=== PATIENT | female | born 1970 | race Caucasian/White ===

== ENCOUNTER → 2017-10-16 09:23 | Outpatient (CLI) | payer OTHER, SELFPAY ==
--- NOTE | 2017-10-16 09:24 | MM_ITS ---
MM Dig screening mamm BI w/CAD ORDERING PHYSICIAN : Nathaniel Trevizo MD PATIENT AGE: 47 years GENDER: Female COMPARISON: June 2016, April 2015, December 2013. Also November 2011 INDICATION: ITS.REASON: Routine Screening Mammogram Depo-Provera shot.. Patient stop hormones 2017. No new complaints. Noncontributory family history TECHNIQUE: Standard CC and MLO images were obtained. R2 CAD reviewed. FINDINGS: Moderate breast density bilaterally. RIGHT BREAST:No significant change follow-up in one year on the right LEFT BREAST: Area of slight relative density at 12:00-1:00 left breast on today's study, matches the 2012 cc view. Overall I favor this is merely a summation shadow Cyst previously noted 2012 ultrasound in this same area as well.. Suggest Follow-up left mammogram 5-6 months to confirm stability IMPRESSION: Left breast slight relative density superior left breast believe is similar to studies dating back to 2012 although variable since that time. Most likely summation shadow However would suggest a follow-up left mammogram in 5-6 months to better confirm stability here, with routine protocol for thereafter Stable right breast. Follow-up one year on right BI-RADS Category: 3 Probably Benign Finding Short Term Follow-up RECOMMENDED FOLLOW-UP: 6M 6 MONTH FOLLOW-UP right breast (A letter has been sent to the patient regarding results of the study.)
[2017-10-16 13:06] LABS: Alanine Aminotransferase 25 U/L (12-78); Albumin Level 3.6 gm/dL (3.4-5.0); Albumin/Globulin Ratio 0.9 (1.1-1.8); Alkaline Phosphatase 85 U/L (46-116); Anion Gap 11.6 mEq/L (5-15); Aspartate Amino Transferase 9 U/L (15-37); Bilirubin,Total 0.4 mg/dL (0.2-1.0); Blood Urea Nitrogen 9 mg/dL (7-18); Calcium 8.9 mg/dL (8.5-10.1); Carbon Dioxide 29 mmol/L (21.0-32.0); Chloride 106 mmol/L (98-107); Chol/HDL Ratio 3.8 (1-3.5); Cholesterol 230 mg/dL (140-200); Creatinine,Serum 0.74 mg/dL (0.55-1.02); Estimated Glomerular Filt Rate 84 ml/min (>60); Free Thyroxine Index 2.9 ug/dL (5.93-13.13); GFR (African American) 102 ML/MIN (>60); Glucose 89 mg/dL (74-106); HDL Cholesterol 61 mg/dL (29-89); LDL Cholesterol 144 mg/dL (0-130); Potassium 4.6 mmoL/L (3.5-5.1); Sodium 142 mmol/L (136-145); T4 (Thyroxine) 9.5 ug/dl (4.7-13.3); Thyroid Stimulating Hormone 0.49 uIU/ml (0.358-3.740); Total Protein,Serum 7.6 gm/dL (6.4-8.2); Triglycerides 124 mg/dL (30-200); Triiodothryronine (T3) Uptake 31 % (31-39); VLDL Cholesterol 25 mg/dL (0-40)
[2017-10-17 18:29] LABS: Vitamin B12 305 pg/mL (232-1245)
== END ==
PROVIDERS: Family Provider Internal Medicine Adolescent Medicine; PCP Internal Medicine Adolescent Medicine; Visit Provider Nurse Practitioner Obstetrics & Gynecology
DX: Z12.31 Encounter for screening mammogram for malignant neoplasm of breast (principal); Z01.419 Encounter for gynecological examination (general) (routine) without abnormal findings
CPT/HCPCS: 36415; 77067; 80053; 80061; 82607; 83735; 84436; 84443; 84479

== ENCOUNTER → 2018-12-10 16:56 | Outpatient (CLI) | payer BC, SELFPAY ==
--- NOTE | 2018-12-10 16:57 | MM_ITS ---
PROCEDURE: MM DIG SCREENING MAMM BI W/CAD CLINICAL INDICATION: Routine Screening Mammogram There is no personal or family history of breast cancer. COMPARISON: [facility] DIG MAMM-SCREEN GUILLERMO from 05/03/2015 [facility] DIG MAMM-SCREEN GUILLERMO W/CAD from 06/27/2016 [facility] MM Dig screening mamm BI w/CAD from 10/16/2017 TECHNIQUE: Standard CC and MLO images were obtained. R2 CAD reviewed. FINDINGS: There is a diffusely dense and heterogenic parenchymal pattern lessening the sensitivity of mammography. The findings are fairly symmetrical bilaterally. There is no suspicious lesion and no suspicious microcalcifications. IMPRESSION: Diffusely dense parenchymal pattern with no suspicious lesions seen BI-RAD Category: 1 Negative FOLLOW-UP: 1YR 1 Year Follow-up (A letter has been sent to the patient regarding results of the study.) Dictated by: Dr. David Arriola MD 12/14/2018 10:[address] David Arriola MD in [place] 12/14/2018 10:12
== END ==
PROVIDERS: PCP Internal Medicine Adolescent Medicine; Visit Provider Nurse Practitioner Obstetrics & Gynecology
DX: Z12.31 Encounter for screening mammogram for malignant neoplasm of breast (principal)
CPT/HCPCS: 77067

== ENCOUNTER → 2020-04-02 07:58 | Outpatient (CLI) | payer BC, SELFPAY ==
--- NOTE | 2020-04-02 08:15 | MM_ITS ---
PROCEDURE: MM DIG SCREENING MAMM BI W/CAD Digital Breast Tomosynthesis Included CLINICAL INDICATION: SCREENING There is no personal or family history of breast cancer. COMPARISON: MG [facility] DIG MAMM-SCREEN GUILLERMO W/CAD from 06/27/2016 MG [facility] MM Dig screening mamm BI w/CAD from 10/16/2017 MG MM DIG SCREENING MAMM BI W/CAD from 12/10/2018 TECHNIQUE: Standard CC and MLO images and 3D Tomosynthesis was obtained. R2 CAD reviewed. FINDINGS: There is a diffusely dense and heterogenic parenchymal pattern stable and basically unchanged from the most recent study. The findings are fairly symmetrical bilaterally. There is a stable tiny nodular density outer quadrant right breast. There is no suspicious lesion in either breast and no suspicious microcalcifications. IMPRESSION: Stable diffusely dense parenchymal pattern with no suspicious lesions seen BI-RAD Category: 2 Benign Finding(s) FOLLOW-UP: 1YR 1 Year Follow-up (A letter has been sent to the patient regarding results of the study.) Dictated by: Dr. David Arriola MD 04/02/2020 17:14 Dr. David Arriola MD in [place] 04/02/2020 17:14
== END ==
PROVIDERS: PCP Internal Medicine Adolescent Medicine; Visit Provider Nurse Practitioner Obstetrics & Gynecology
DX: Z12.31 Encounter for screening mammogram for malignant neoplasm of breast (principal)
CPT/HCPCS: 77063; 77067

== ENCOUNTER → 2020-04-12 08:46 | Outpatient (CLI) | payer BC, SELFPAY ==
[2020-04-12 11:02] LABS: Coronavirus 19 IgG Antibody Positive (Negative); Coronavirus 19 IgM Antibody Negative (Negative)
== END ==
PROVIDERS: Visit Provider Nurse Practitioner Obstetrics & Gynecology
DX: Z11.52 Encounter for screening for COVID-19 (principal)
CPT/HCPCS: 36415; 86328

== ENCOUNTER 2021-07-18 16:50 | Emergency (ER) | payer BC, SELFPAY ==
[2021-07-18 17:02] VITALS: BP 172/111; PULSE 88; RESP 18; TEMP 36.9; O2SAT 99; BMI 28.5
--- NOTE | 2021-07-18 17:11 | HMH.EDUTC ---
[facility] [place] Disposition Clinical Impression: Pharyngitis Qualifiers: Pharyngitis/tonsillitis etiology: unspecified etiology Qualified Code(s): J02.9 - Acute pharyngitis, unspecified Disposition: Home, Self-Care Condition on Discharge: Good Instructions: DI for Pharyngitis/Tonsillopharyngitis -- Adult Additional Instructions: Drink plenty of fluids. Take tylenol or ibuprofen for pain or fever. Take the medications as directed. Follow up with your regular doctor. GO TO THE ER FOR ANY WORSENING SYMPTOMS Prescriptions: predniSONE [Prednisone 20mg Tab] 20 mg PO BID 3 Days #6 tab Transmission Status: Received by [facility] Azithromycin [Z-Jb 250mg Tab*] 250 mg PO UD DOSE PK #6 tab Transmission Status: Received by [facility] Referrals: Alessio Reza [Primary Care Provider] - Time of Disposition: 17:28 Medical Decision Making - Medical Records Medical records reviewed: No: I reviewed the patient's medical records. - Kris Inquiry Pt receiving controlled substance: No Vital Signs: 07/18/21 17:02 07/18/21 17:33 Temperature 98.4 F 98.4 F Temperature Source Oral Pulse Rate 88 Pulse Rate [Left Radial] 88 Respiratory Rate 18 18 Blood Pressure 172/111 H Blood Pressure [Right Arm] 172/111 H Blood Pressure Mean [Right Arm] 131 02 Sat by Pulse Oximetry 99 - Lab Data Lab results reviewed: Yes: I reviewed the patient's lab results. Lab Results 07/18/21 17:09: Group A Strep Rapid Negative Orders (Tests/Meds): ORDERS Category Date Time Status Strep Screen Confirmation Stat Micro 07/18/21 17:09 Received [facility] [place] HPI - General Stated complaint: sore throat Time Seen by Provider: 07/18/21 17:12 - History of Present Illness Provider Complaint: She states that she has had a sore throat for the past 5 days. She denies any fever, chills, or body aches, but she has felt bad at times. - Related Data Previous Rx's Medication Instructions Recorded phentermine 37.5 mg tablet 37.5 mg PO DAILY #30 tab 04/12/20 Azithromycin [Z-Jb 250mg Tab*] 250 mg PO UD DOSE PK #6 tab 07/18/21 predniSONE [Prednisone 20mg 20 mg PO BID 3 Days #6 tab 07/18/21 Tab] Allergies Allergy/AdvReac Type Severity Reaction Status Date / Time Penicillins Allergy Unknown Verified 07/18/21 17:12 [facility] History - Hepatitis A Screen Attestation statement:: This patient has been screened for Hepatitis A risk factors. I have reviewed the patient's past medical history: Yes Medical History: Denies:: Anxiety, Depression, Diabetes Mellitus Type 1, Hyperlipidemia, Hypertension, Migraine, MRSA, Seizures Other Surgeries: Yes: Tubal Ligation Amputation: No Fractures: No Comment: ablation - Social History Smoking Status: Never smoker Alcohol Intake: current Alcohol Intake Frequency:: holidays/special occasions only Substance Use Type: denies use Occupational Status: employed - Psychiatric History Pschychiatric History:: Denies:: Anxiety, Depression Family Hx:: Cancer ROS Obtained: Yes All systems reviewed & no additional complaints - Constitutional Constitutional: Reports as per HPI - Eyes Eyes: Denies eye discharge - ENT Ears, Nose, Mouth, and Throat: Reports as per HPI - Cardiovascular Cardiovascular: Denies chest pain - Respiratory Respiratory: Denies chest congestion, Denies cough, Denies dyspnea, Denies stridor, Denies wheezing - Gastrointestinal Gastrointestingal: Reports: nausea. Denies: abdominal pain, diarrhea, vomiting - Musculoskeletal Musculoskeletal: Denies joint pain - Integumentary/Breasts Skin/Breast: Denies rash Physical Exam - General General appearance: alert, in no apparent distress - Head Head exam: atraumatic, normocephalic, normal inspection - Eye Eye exam: Present: normal appearance, PERRL, EOMI - ENT ENT exam: Present: mucous membranes moist, normal external ear exam - Expanded ENT Exam
[2021-07-18 17:24] LABS: Strep Scrn Group A (Rapid) Negative (Negative)
[2021-07-18 17:33] VITALS: BP 172/111; PULSE 88; RESP 18; TEMP 36.9
== END 2021-07-18 17:34 | disposition home or self-care (01) ==
PROVIDERS: Emergency Provider Nurse Practitioner Family; PCP Family Medicine
DX: J02.9 Acute pharyngitis, unspecified (principal); Z79.1 Long term (current) use of non-steroidal anti-inflammatories (NSAID); Z79.52 Long term (current) use of systemic steroids; Z88.0 Allergy status to penicillin; Z20.9 Contact with and (suspected) exposure to unspecified communicable disease
CPT/HCPCS: 87430; 99213; G0463

== ENCOUNTER 2021-07-28 09:38 | Emergency (ER) | payer BC, SELFPAY ==
--- NOTE | 2021-07-28 09:42 | XR_ITS ---
PROCEDURE INFORMATION: Exam: XR Right Ribs with PA Chest Exam date and time: 07/28/2021 9:57 AM Age: 51 years old Clinical indication: Other: Right rib pain; Additional info: Pop and pain in right mid rib area TECHNIQUE: Imaging protocol: Radiologic exam of the Right ribs with PA chest. Views: 3 views COMPARISON: No relevant prior studies available. FINDINGS: Lungs: No focal airspace disease. Pleural spaces: Unremarkable. No pleural effusion. No pneumothorax. Heart/Mediastinum: Cardiomediastinal silhouette is within normal limits. Bones/joints: No displaced rib fractures identified. IMPRESSION: 1. No acute cardiopulmonary abnormality. 2. No displaced rib fractures identified.
[2021-07-28 09:45] VITALS: BP 149/97; PULSE 83; RESP 18; TEMP 36.5; O2SAT 96; BMI 28.5
--- NOTE | 2021-07-28 09:47 | HMH.EDUTC ---
[facility] [place] Disposition Clinical Impression: Rib pain on right side Disposition: Home, Self-Care Condition on Discharge: Good Instructions: DI for Rib Contusion Additional Instructions: Use the incentive spirometer 10 times every 2 hours while you are awake for the next 2 weeks. Make sure you are deep breathing and coughing regularly. Go home and rest. It would be best if you rested tomorrow too. No heavy lifting. No twisting. Take the oral medications as directed. Follow up with your regular doctor. GO TO THE ER FOR ANY WORSENING SYMPTOMS OR CONCERN, ESPECIALLY BOWEL OR BLADDER ISSUES, SADDLE AREA NUMBNESS, FEVER, ETC Prescriptions: Ibuprofen [Ibuprofen 800mg Tablet] 800 mg PO Q8HP PRN #30 tab PRN Reason: Moderate Pain Transmission Status: Received by [id number] Referrals: Alessio Reza [Primary Care Provider] - Forms: Work/School Release Time of Disposition: 10:41 Medical Decision Making - Medical Records Medical records reviewed: No: I reviewed the patient's medical records. - Kris Inquiry Pt receiving controlled substance: No Vital Signs: 07/28/21 09:45 07/28/21 10:45 Temperature 97.7 F 97.7 F Temperature Source Oral Pulse Rate 83 Pulse Rate [Left Radial] 83 Respiratory Rate 18 18 Blood Pressure 149/97 H Blood Pressure [Right Arm] 149/97 H Blood Pressure Mean [Right Arm] 114 02 Sat by Pulse Oximetry 96 - Lab Data Lab results reviewed: Yes: I reviewed the patient's lab results. Orders (Tests/Meds): ED MEDICATIONS Discontinued Medications Generic Name Dose Route Start Last Admin Trade Name Freq PRN Reason Stop Dose Admin Ketorolac Tromethamine 60 mg 07/28/21 10:32 07/28/21 10:38 Ketorolac 60mg/2ml Vial IM 07/28/21 10:33 60 mg ONCE ONE Administration [facility] [place] HPI - General Stated complaint: rt side pain Time Seen by Provider: 07/28/21 09:47 - History of Present Illness Provider Complaint: She states that yesterday she was stretching to bend over to waste picker a stick out of her yard when she felt something pop in her left lower chest. Since then she has had right sided chest tenderness and pain with movement. She denies any other chest pain or injury. She denies any shortness of breath or cough. - Related Data Previous Rx's Medication Instructions Recorded phentermine 37.5 mg tablet 37.5 mg PO DAILY #30 tab 04/12/20 Azithromycin [Z-Jb 250mg Tab*] 250 mg PO UD DOSE PK #6 tab 07/18/21 predniSONE [Prednisone 20mg 20 mg PO BID 3 Days #6 tab 07/18/21 Tab] Ibuprofen [Ibuprofen 800mg 800 mg PO Q8HP PRN #30 tab 07/28/21 Tablet] Allergies Allergy/AdvReac Type Severity Reaction Status Date / Time Penicillins Allergy Unknown Verified 07/28/21 09:52 [facility] History - Hepatitis A Screen Attestation statement:: This patient has been screened for Hepatitis A risk factors. I have reviewed the patient's past medical history: Yes Medical History: Denies:: Anxiety, Depression, Diabetes Mellitus Type 1, Hyperlipidemia, Hypertension, Migraine, MRSA, Seizures Other Surgeries: Yes: Tubal Ligation Amputation: No Fractures: No Comment: ablation - Social History Smoking Status: Never smoker Alcohol Intake: current Alcohol Intake Frequency:: holidays/special occasions only Substance Use Type: denies use Occupational Status: employed - Psychiatric History Pschychiatric History:: Denies:: Anxiety, Depression Family Hx:: Cancer ROS Obtained: Yes All systems reviewed & no additional complaints - Constitutional Constitutional: Denies chills, Denies fever(s) - Eyes Eyes: Denies eye discharge - ENT Ears, Nose, Mouth, and Throat: Denies sore throat - Cardiovascular Cardiovascular: Reports as per HPI - Respiratory Respiratory: Denies chest congestion, Denies cough, Denies dyspnea, Denies stridor, Denies wheezing - Gastrointestinal Gastrointestingal: Denies: abdominal pain, diarrhea, nausea, vomiting
[2021-07-28 10:45] VITALS: BP 149/97; PULSE 83; RESP 18; TEMP 36.5
== END 2021-07-28 10:52 | disposition home or self-care (01) ==
PROVIDERS: Emergency Provider Nurse Practitioner Family; PCP Family Medicine
DX: R07.81 Pleurodynia (principal)
CPT/HCPCS: 71101; 96372; 99212; G0463

== ENCOUNTER → 2021-08-03 11:16 | Outpatient (CLI) | payer BC, SELFPAY ==
--- NOTE | 2021-08-03 11:29 | XR_ITS ---
PROCEDURE INFORMATION: Exam: XR Right Ribs with PA Chest Exam date and time: 08/03/2021 11:45 AM Age: 51 years old Clinical indication: Chest wall pain; Right TECHNIQUE: Imaging protocol: Radiologic exam of the Right ribs with PA chest. Views: 3 views COMPARISON: CR XR RIBS RT MIN 3V W [id number] 07/28/2021 9:57 AM FINDINGS: Lungs: Unremarkable. No consolidation. Pleural spaces: Unremarkable. No pleural effusion. No pneumothorax. Heart/Mediastinum: Unremarkable. No cardiomegaly. Bones/joints: Unremarkable. IMPRESSION: 1. No evidence for rib fracture or pneumothorax is identified on four views of the chest and ribs. 2. No evidence of acute cardiopulmonary process.
== END ==
PROVIDERS: PCP Family Medicine; Visit Provider Nurse Practitioner Family
DX: R07.89 Other chest pain (principal)
CPT/HCPCS: 71101

== ENCOUNTER → 2022-05-13 16:07 | Outpatient (CLI) | payer BC, SELFPAY ==
--- NOTE | 2022-05-13 16:07 | MM_ITS ---
PROCEDURE INFORMATION: Exam: MG Bilateral Screening 3D Mammography Exam date and time: 05/13/2022 4:05 PM Age: 52 years old Clinical indication: Screening examination TECHNIQUE: Imaging protocol: Bilateral Screening tomosynthesis and 2D mammography including computer-aided detection (CAD) when performed. COMPARISON: 1. MG MM DIG SCREENING MAMM BI W/CAD 04/02/2020 8:13 AM 2. MG MM DIG SCREENING MAMM BI W/CAD 12/10/2018 5:02 PM FINDINGS: MAMMOGRAPHY: Breast composition: The breasts are heterogeneously dense, which may obscure small masses. Mass: None. Architectural distortion: None. Calcifications: No suspicious calcifications. Asymmetric density: None. Skin thickening: None. Axillary adenopathy: None. IMPRESSION: No mammographic evidence of malignancy. Annual screening is recommended unless otherwise clinically indicated. ASSESSMENT: BI-RADS Category 1: Negative
== END ==
PROVIDERS: PCP Family Medicine; Visit Provider Nurse Practitioner Obstetrics & Gynecology
DX: Z12.31 Encounter for screening mammogram for malignant neoplasm of breast (principal)
CPT/HCPCS: 77063; 77067

== ENCOUNTER 2023-07-28 16:12 | Outpatient (CLI) | payer BC, SELFPAY ==
--- NOTE | 2023-07-28 16:14 | MM_ITS ---
PROCEDURE INFORMATION: Exam: MG Bilateral Screening 3D Mammography Exam date and time: 07/28/2023 4:04 PM Age: 53 years old Clinical indication: Screening examination TECHNIQUE: Imaging protocol: Bilateral Screening tomosynthesis and 2D mammography including computer-aided detection (CAD) when performed. COMPARISON: 1. MG MM DIG SCREENING MAMM BI W/CAD 05/13/2022 4:05 PM 2. MG MM DIG SCREENING MAMM BI W/CAD 04/02/2020 8:13 AM FINDINGS: MAMMOGRAPHY: Breast composition: The breasts are heterogeneously dense, which may obscure small masses. Mass: None. Architectural distortion: None. Calcifications: No suspicious calcifications. Asymmetric density: None. Skin thickening: None. Axillary adenopathy: None. IMPRESSION: No mammographic evidence of malignancy. Annual screening is recommended unless otherwise clinically indicated. ASSESSMENT: BI-RADS Category 1: Negative
== END 2023-07-28 23:59 | disposition home or self-care (01) ==
LOC: RAD 16:12
PROVIDERS: PCP Family Medicine; Visit Provider Nurse Practitioner Obstetrics & Gynecology
DX: Z12.31 Encounter for screening mammogram for malignant neoplasm of breast (principal)
CPT/HCPCS: 77063; 77067

== ENCOUNTER 2025-01-02 15:30 | Outpatient (CLI) | payer BC, SELFPAY ==
--- OUTSIDE RECORDS SUMMARY | 2024-12-13 15:00 | XMS_ITS | Encounter Summary ---
[facility] [address] [place] [address] Care Team Providers Care Marina Porter Name Role Phone Alessio Reza MD Primary Care Provider [phone] Reason for Referral * Diagnostic Imaging (Routine) - Authorized Specialty Diagnoses / Procedures Referred By Contmercy t Referred To Contact Diagnoses Screening mammogram for breast cancer Procedures Mammo Screening Digital Tomosynthesis Bilateral With CAD Alessio Reza MD [address] [facility] [address] Phone: tel: fax: [facility] OUTPT [facility] [address] [place] [address] Phone: tel: fax: Referral ID Status Reason Start Date Expiration Date V isits Requested Visits Authorized [id number] Authorized 12/13/2024 03/14/2026 1 1 Reason for Visit * Reason Comments Annual Exam Physical Encounter Details Date Type Department Care Team (Late st Contact Info) Description 12/13/2024 3:00 PM EST Office Visit [facility] [address] [place] [address] Alessio Reza MD [address] [place] [address] Annual physical exam (Primary Dx); Elevated cholesterol; Screening mammogram for breast cancer Social History Tobacco Use Types Packs/Day Years Used Date Smoking Tobacco: Never Smokeless Tobacco: Never Alcohol Use Standard Drinks/Week Comments Never 0 (1 standard drink = 0.6 oz pur e alcohol) AUDIT-C Answer Date Recorded Q1: How often do you have a drink containing alc ohol? Never 09/28/2020 Average Number of Drinks Not on file 021 Frequency of Binge Drinking Not on file 09/10 PHQ-2 Answer Date Recorded Retired PHQ-9: Brief Depression Severity Measure Score 0 05/05/2022 PHQ-2 Answer Date Recorded Patient Health Questionnaire-2 Score 0 12/13/2024 Comments Unknown Sex and Gender Information Value Date Recorded Sex Assigned at Female 11/29/2024 8:11 AM EDT Legal Sex Female 1:41 PM EDT Gender Identity Not on file Sexual Orientation Straight 11/29/2024 8: 11 AM EDT Occupation Industry Job Start Date Job End Date Not on file Not on file Not on file Not on file documented as of this encounter Last Filed Vital Signs Vital Sign Reading Time Taken Comments Blood Pressure 132/76 12/13/2024 3:07 PM EST Pulse 85 12/13/2024 3:07 PM EST Temperature 36.9 C (98.4 F) 12/13/2024 3:07 PM EST Respiratory Rate 18 12/13/2024 3:07 PM EST Oxygen Saturation 98% 12/13/2024 3:07 PM EST Inhaled Oxygen Concentration - - Weight 59.4 kg (131 lb) 12/13/2024 3:07 PM EST Height 152.4 cm (5') 12/13/2024 3:07 PM EST Body Mass Index 25.58 12/13/2024 3:07 PM EST documented in this encounter Functional Status documented as of this encounter Progress Notes * Alessio Reza MD - 12/13/2024 3:00 PM EST Subjective Chief Complaint Patient presents with Annual Exam Physical Rejeana Maria Eugenia Mcduffie is a 54 y.o. female who presents for an annual exam. The patient has no complaints today. The patient is sexually active. [employer]OX H[employer]OCK ATT[employer]ER screening history: last pap: was normal. The patient wears seatbelts: yes. The patient participates in regular exercise: yes. . The patient reports that there is not domestic violence in her life. History of abnormal Pap smear: no Family history of uterine or ovarian cancer: no Family history of colon cancer: no History of abnormal mammogram: no Family history of breast cancer: no Colonoscopy history: cologuard Menstrual History: OB History 0 Para 0 Term 0 0 AB 0 Living 0 SAB 0 IAB 0 Ectopic 0 Molar 0 Multiple 0 Live Births 0 No LMP recorded. The following portions of the patient's history were reviewed and updated as appropriate:vital signs, allergies, current medications, past family history, past medical history, past social history, past surgical history, and problem list Review of Systems A comprehensive review of systems was negative. Objective BP 132/76 Pulse 85 Temp 98.4 ??F (36.9 ??C) Resp 18 Ht 152.4 cm (60 ) Wt 59.4 kg (131 lb) SpO2 98% BMI 25.58 kg/m?? Physical Exam Vitals and nursing note reviewed. Constitutional: General: She is not in acute distress. Appearance: Normal appearance. She is well-developed. HENT: Head: Normocephalic and atraumatic. Right Ear: Tympanic membrane, ear canal and external ear normal. Left Ear: Tympanic membrane, ear canal and external ear normal. Nose: Nose normal. Eyes: Extraocular Movements: Extraocular movements intact. Conjunctiva/sclera: Conjunctivae normal. Neck: Thyroid: No thyromegaly. Cardiovascular: Rate and Rhythm: Normal rate and regular rhythm. Heart sounds: Normal heart sounds. No murmur heard. Pulmonary: Effort: Pulmonary effort is normal. No respiratory distress. Breath sounds: Normal breath sounds. Abdominal: General: Bowel sounds are normal. There is no distension. Palpations: Abdomen is soft. Tenderness: There is no abdominal tenderness. Musculoskeletal: Cervical back: Normal range of motion and neck supple. Lymphadenopathy: Cervical: No cervical adenopathy. Skin: General: Skin is warm and dry. Neurological: Mental Status: She is alert and oriented to person, place, and time. Psychiatric: Mood and Affect: Mood normal. Behavior: Behavior normal. Thought Content: Thought content normal. Judgment: Judgment normal. Assessment & Plan ASSESSMENT Healthy female exam. 1. Annual physical exam 2. Elevated cholesterol 3. Screening mammogram for breast cancer PLAN 1. Orders Placed This Encounter Procedures Mammo Screening Digital Tomosynthesis Bilateral With CAD Lipid Panel Comprehensive Metabolic Panel CBC & Differential 2. Medications prescribed this encounter: No orders of the defined types were placed in this encounter. 3. Counseled pt about well adult car, she remains active, will work on mammogram, will recheck lipids and f/u pending labs Alessio Reza MD 12/13/2024 documented in this encounter Plan of Treatment Scheduled Orders Name Type Priority Associated Diagnoses Orde r Schedule Mammo Screening Digital Tomosynthesis Bilateral With CAD Imaging Routine Screening mammogram for breast cancer Expected: 06/11/2025 (Approximate), Expires: 12/13/2025 documented as of this encounter Procedures Procedure Name Priority Date/Time Associated Diagnosis Comments CBC AND DIFFERENTIAL Routine 12/14/2024 8:27 AM EST Elevated cholesterol LIPID PANEL Routine 12/14/2024 8:27 AM EST Elevated cholesterol COMPREHENSIVE METABOLIC PANEL Routine 12/14/2024 8:27 AM EST Elevated cholesterol documented in this encounter Results * Comprehensive Metabolic Panel (12/14/2024 8:27 AM EST) Glucose 81 65 - 99 mg/dL [facility] BUN 15.0 6.0 - 20.0 mg/dL [facility] Creatinine 0.75 0.57 - 1.00 mg/dL [facility] EGFR Result 94.7 >60.0 mL/min/1.7 3 [facility] Comment: GFR Categories in Chronic Kidney Disease (CKD) GFR Category GFR (mL/min/1.73) Interpretation G1 90 or greater Normal or high (1) G2 60-89 Mild decrease (1) G3a 45-59 Mild to moderate decrease G3b 30-44 Moderate to severe decrease G4 15-29 Severe decrease G5 14 or less Kidney failure (1)In the absence of evidence of kidney disease, neither GFR category G1 or G2 fulfill the criteria for CKD. eGFR calculation 2020 CKD-EPI creatinine equation, which does not include race as a factor BUN/Creatinine Ratio 20.0 7.0 - 25.0 [facility] Sodium 141 136 - 145 mmol/L [facility] Potassium 4.6 3.5 - 5.2 mmol/L [facility] Chloride 104 98 - 107 mmol/L [facility] Total CO2 25.3 22.0 - 29.0 mmol/L [facility] Calcium 9.5 8.6 - 10.5 mg/dL [facility] Total Protein 7.4 6.0 - 8.5 g/dL [facility] Albumin 4.4 3.5 - 5.2 g/dL [facility] Globulin 3.0 gm/dL [facility] A/G Ratio 1.5 g/dL [facility] Total Bilirubin 0.4 0.0 - 1.2 mg/dL [facility] Alkaline Phosphatase 96 39 - 117 U/L [facility] AST (SGOT) 17 1 - 32 U/L [facility] ALT (SGPT) 15 1 - 33 U/L [facility] Blood 12/14/2024 8:27 AM EST 12/14/2024 Narrative [facility] ([facility]) - 12/15/2024 3:07 AM EST Performed at: [address] [place] [id number] Medical Social Worker: Sukhwinder Figueroa MD, Phone: [phone] Patient Fasting: Y us Alessio Reza MD LAB BLOOD ORDERABLES Final Resu lt [facility] (AMBULATORY) [address] [place] [address], [facility] [address] [place] [address], * (ABNORMAL) Lipid Panel (12/14/2024 8:27 AM EST) [facility] Total Cholesterol 245(H) 0 - 200 mg/dL [facility] Comment: Cholesterol Reference Ranges (U.S. Department of Health and Human Services ATP III Classifications) Desirable <200 mg/dL Borderline High 200-239 mg/dL High Risk >240 mg/dL Triglyceride Reference Ranges (U.S. Department of Health and Human Services ATP III Classifications) Normal <150 mg/dL Borderline High 150-199 mg/dL High 200-499 mg/dL Very High >500 mg/dL HDL Reference Ranges (U.S. Department of Health and Human Services ATP III Classifications) Low <40 mg/dl (major risk factor for CHD) High >60 mg/dl ('negative' risk factor for CHD) LDL Reference Ranges (U.S. Department of Health and Human Services ATP III Classifications) Optimal <100 mg/dL Near Optimal 100-129 mg/dL Borderline High 130-159 mg/dL High 160-189 mg/dL Very High >189 mg/dL LDL is calculated using the NIH LDL-C calculation. Triglycerides 88 0 - 150 mg/dL [facility] HDL Cholesterol 62(H) 40 - 60 mg/dL [facility] VLDL Cholesterol Nash 15 5 - 40 mg/dL [facility] LDL Chol Calc (NIH) 168(H) 0 - 100 mg/dL [facility] Blood 12/14/2024 8:27 AM EST 12/14/2024 Narrative [facility] ([facility]) - 12/15/2024 3:07 AM EST Performed at: [address] [place] [id number] Medical Social Worker: Sukhwinder Figueroa MD, Phone: [phone] Patient Fasting: Y Alessio Reza MD LAB BLOOD ORDERABLES Final Resu lt [facility] (AMBULATORY) [address] [place] [address], [facility] [address] [place] [address], * CBC & Differential (12/14/2024 8:27 AM EST) [facility] WBC 4.11 3.40 - 10.80 10*3/mm3 [facility] RBC 4.45 3.77 - 5.28 10*6/mm3 [facility] Hemoglobin 12.9 12.0 - 15.9 g/dL [facility] Hematocrit 39.8 34.0 - 46.6 % [facility] MCV 89.4 79.0 - 97.0 fL [facility] MCH 29.0 26.6 - 33.0 pg [facility] MCHC 32.4 31.5 - 35.7 g/dL [facility] RDW 13.1 12.3 - 15.4 % [facility] Platelets 273 140 - 450 10*3/mm3 [facility] Neutrophil Rel % 50.3 42.7 - 76.0 % [facility] Lymphocyte Rel % 40.1 19.6 - 45.3 % [facility] Monocyte Rel % 5.8 5.0 - 12.0 % [facility] Eosinophil Rel % 2.4 0.3 - 6.2 % [facility] Basophil Rel % 1.2 0.0 - 1.5 % [facility] Neutrophils Absolute 2.06 1.70 - 7.00 10*3/mm3 [facility] Lymphocytes Absolute 1.65 0.70 - 3.10 10*3/mm3 [facility] Monocytes Absolute 0.24 0.10 - 0.90 10*3/mm3 [facility] Eosinophils Absolute 0.10 0.00 - 0.40 10*3/mm3 [facility] Basophils Absolute 0.05 0.00 - 0.20 10*3/mm3 [facility] Immature Granulocyte Rel % 0.2 0.0 - 0.5 % [facility] Immature Grans Absolute 0.01 0.00 - 0.05 10*3/mm3 [facility] nRBC 0.0 0.0 - 0.2 /100 WBC [facility] Blood 12/14/2024 8:27 AM EST 12/14/2024 Narrative [facility] ([facility]) - 12/15/2024 3:07 AM EST Performed at: [address] [id number] Medical Social Worker: Sukhwinder Figueroa MD, Phone: [phone] Patient Fasting: Y us Alessio Reza MD LAB BLOOD ORDERABLES Final Resu lt [facility] ([facility]) [address] [place] [address], [place] [phone] [facility] [address] [place] [address], [place] [phone] documented in this encounter Visit Diagnoses Diagnosis Annual physical exam- Primary Routine general medical examination at a health care facility Elevated cholesterol Pure hypercholesterolemia Screening mammogram for breast cancer documented in this encounter Care Teams Marina Porter Relationship Specialty Start Date End Date Alessio Reza MD [address] [place] [address] PCP - General Family Medicine 09/28/20 documented as of this encounter
--- OUTSIDE RECORDS SUMMARY | 2024-12-14 08:30 | XMS_ITS | Encounter Summary ---
Author Organization [facility] Address [address] [place] [address] Care Team Providers Care Pricing/Signage Team Member Name Role Phone Alessio Reza MD Primary Care Provider [phone] Encounter Details Date Type Department Care Team (Late st Contact Info) Description 12/14/2024 8:30 AM EST Lab [facility] [address] [place] [address] Social History Tobacco Use Types Packs/Day Years [...] on file documented as of this encounter Plan of Treatment Not on file documented as of this encounter Visit Diagnoses Not on filedocumented in this encounter Care Teams Pricing/Signage Team Member Relationship Specialty Start Date End Date Alessio Reza MD [address] [place] [address] PCP - General Family Medicine 09/28/20 documented as of this encounter
--- NOTE | 2025-01-02 15:32 | MM_ITS ---
PROCEDURE INFORMATION: Exam: MG Bilateral Screening 3D Mammography Exam date and time: 01/02/2025 3:30 PM Age: 54 years old Clinical indication: Screening examination TECHNIQUE: Imaging protocol: Bilateral Screening tomosynthesis and 2D mammography including computer-aided detection (CAD) when performed. COMPARISON: MG MM DIG SCREENING MAMM BI W/CAD 07/28/2023 4:04 PM FINDINGS: MAMMOGRAPHY: Breast composition: The breasts are heterogeneously dense, which may obscure small masses. Mass: No suspicious masses. Architectural distortion: None. Calcifications: No suspicious calcifications. Asymmetric density: None. Skin thickening: None. Axillary adenopathy: None. IMPRESSION: No mammographic evidence of malignancy. Annual screening is recommended unless otherwise clinically indicated. ASSESSMENT: BI-RADS Category 1: Negative.
--- OUTSIDE RECORDS SUMMARY | 2025-01-02 15:32 | XMS_ITS | Encounter Summary ---
[facility] [address] [place] [id number] Care Team Providers Care Assistant Professor Of Life Sciences Name Role Phone Alessio Reza MD Primary Care Provider [phone] Reason for Visit * Reason Onset Date Comments ORDERS 11/30/2024 Encounter Details Date Type Department Care Team (Late st Contact Info) Description 11/30/2024 Telephone [facility] [address] [place] [address] Alessio Reza MD [address] [place] [address] ORDERS Social History Tobacco Use Types Packs/Day Years [...] on file documented as of this encounter Functional Status documented as of this encounter Miscellaneous Notes * Telephone Encounter - Beatris Pedersen - 11/30/2024 8:17 AM EDT Caller: Asael Mcduffie Relationship: Self Best call back number: [phone] What is the best time to reach you: ANY Who are you requesting to speak with (clinical staff, provider, specific staff member): NURSE Do you know the name of the person who called: PATIENT What was the call regarding: PATIENT WOULD LIKE TO DO LABS. NEEDS ORDERS. Is it okay if the provider responds through MyChart: PHONE CALL PLEASE documented in this encounter Plan of Treatment Not on file documented as of this encounter Visit Diagnoses Not on filedocumented in this encounter Care Teams Assistant Professor Of Life Sciences Relationship Specialty Start Date End Date Alessio Reza MD [address] [place] [address] PCP - General Family Medicine 09/28/20 documented as of this encounter
--- OUTSIDE RECORDS SUMMARY | 2025-01-02 15:32 | XMS_ITS | Clinical Summary ---
Author Organization [facility] Address [facility] LEONARDO Sung [address] Phone Care Team Providers Care Head Soft Sugar Operator Name Role Phone Unavailable Primary Care Provider Unavailabl e Allergies Active Allergy Reactions Criticality Noted Date Comments Penicillins Hives 05/23/2022 Social History Tobacco Use Types Packs/Day Years Used Date Smoking Tobacco: Never Assessed Comments Unknown Sex and Gender Information Value Date Recorded Sex Assigned at Not on file Legal Sex Female 6:18 PM EDT Gender Identity Not on file Sexual Orientation Not on file Last Filed Vital Signs Vital Sign Reading Time Taken Comments Blood Pressure 142/76 05/23/2022 7:00 PM EDT Pulse 80 05/23/2022 7:00 PM EDT Temperature 36.4 C (97.5 F) 05/23/2022 7:00 PM EDT Respiratory Rate 16 05/23/2022 7:00 PM EDT Oxygen Saturation 100% 05/23/2022 7:00 PM EDT Inhaled Oxygen Concentration - - Weight - - Height - - Body Mass Index - - Plan of Treatment Health Maintenance Due Date Last Done Comments Annual Wellness Exam 1973 Cervical Cancer Screening 1991 Pap Smear 1991 HPV/Pap Cotest 01/27/2000 Breast Cancer Screening 2010 Cologuard 2015 Colon Cancer Screening 2015 Colonoscopy 2015 FIT 2015 Sigmoidoscopy 2015 Virtual Colonography 2015 Pneumococcal Vaccine 50+ (1 of 1 - PCV) 01/27/2020 Zoster (1 of 2) 01/27/2020 COVID-19 Vaccine (1 - 2024- season) 2024 Influenza Vaccine (#1) 2024 11/22/2019, 2018 DTaP/TDaP/Td (2 - Td or Tdap) 10/22/2028 10/22/2018 Hepatitis B Vaccine Completed 11/21/2019, 11/21/2018, 10/22/2018, Additional history exists Meningococcal B Vaccine Aged Out No l onger eligible based on patient's age to complete this topic Insurance [place] [id number] [facility] [place] [id number] ANTHEM PPO
--- OUTSIDE RECORDS SUMMARY | 2025-01-02 15:32 | XMS_ITS | Encounter Summary ---
[facility] [address] [place] [address] Care Team Providers Care Technical Program Manager Name Role Phone Alessio Reza MD Primary Care Provider [phone] Encounter Details Date Type Department Care Team (Late st Contact Info) Description 12/18/2024 Results Follow-Up [facility] [address] [place] [address] Alessio Reza MD [address] [place] [address] Social History Tobacco Use Types Packs/Day Years [...] on filedocumented in this encounter Care Teams Technical Program Manager Relationship Specialty Start Date End Date Alessio Reza MD [address] [place] [address] PCP - General Family Medicine 09/28/20 documented as of this encounter
--- OUTSIDE RECORDS SUMMARY | 2025-01-02 15:32 | XMS_ITS | Encounter Summary ---
[facility] [address] [place] [address] Care Team Providers Care Deckhand Fishing Vessel Name Role Phone Alessio Reza MD Primary Care Provider [phone] Encounter Details Date Type Department Care Team (Late st Contact Info) Description 12/15/2024 Results Follow-Up [facility] [address] [place] [address] Alessio Reza MD [address] [place] [address] Social History Tobacco Use Types [...] on filedocumented in this encounter Care Teams Deckhand Fishing Vessel Relationship Specialty Start Date End Date Alessio Reza MD [address] [place] [address] PCP - General Family Medicine 09/28/20 documented as of this encounter
--- OUTSIDE RECORDS SUMMARY | 2025-01-02 15:32 | XMS_ITS | Encounter Summary ---
[facility] [address] [place] [address] Care Team Providers Care Apple Peeler Operator Name Role Phone Alessio Reza MD Primary Care Provider [phone] Encounter Details Date Type Department Care Team (Latest Contact Info) Description 12/13/2024 Travel Social History Tobacco Use Types Packs/Day Years [...] Functional Status documented as of this encounter Plan of Treatment Not on file documented as of this encounter Visit Diagnoses Not on filedocumented in this encounter Care Teams Apple Peeler Operator Relationship Specialty Start Date End Date Alessio Reza MD [address] [place] [address] PCP - General Family Medicine 09/28/20 documented as of this encounter
--- OUTSIDE RECORDS SUMMARY | 2025-01-02 15:32 | XMS_ITS | Clinical Summary ---
[facility] Address [address] [place] [address] Care Team Providers Care Gaggerman Name Role Phone Alessio Reza MD Primary Care Provider [phone] Allergies Active Allergy Reactions Criticality Noted Date Comments Penicillins Hives 09/28/2020 Medications * This document contains information received from the source organization and may not represent a complete record from that organization. HYDROcodone-ac etaminophen (NORCO) 5-325 MG per tabletIndicati ons:Rib contusion, left, initial encounter Take 1 tablet by mouth Every 8 (Eight) Hours As Needed for Moderate Pain. 12 tablet 05/10/19 25 025 Discontinued naproxen (Naprosyn) 500 MG tabletIndicati ons:Rib contusion, left, initial encounter Take 1 tablet by mouth 2 (Two) Times a Day With Meals. 60 tablet 05/10/19 25 025 Discontinued(*T herapy completed) Active Problems No known active problems Resolved Problems Problem Noted Date Diagnosed Date Resolved Date Essential hypertension 03/29/202312/13 Assessment & Plan (03/29/2023 5:26 PM EST): HTN Education Goal BP 120/80 Follow a low sodium diet Increase water intake Take medications as prescribed Monitor for s/s of elevated BP Go to the ER with BP >180/100 with symptoms of chest pains, shortness of breath, visual disturbances, headaches Encounters * This document contains information received from the source organization and may not represent a complete record from that organization. Date Type Department Care Team Description 12/18/2024 Results Follow-Up [facility] [address] [place], [place] [address] Alessio Reaz MD 12/15/2024 Results Follow-Up [facility] [address] [place], [place] [address] Alessio Reza MD 12/14/2024 8:30 AM EST Lab [facility] [address] [place] [address] 12/13/2024 3:00 PM EST Office Visit [facility] [address] [place] [address] Alessio Reza MD Annual physical exam (Primary Dx); Elevated cholesterol; Screening mammogram for breast cancer 12/13/2024 Travel 11/30/2024 Telephone [facility] [address] [place] [address] Alessio Reza MD ORDERS from Last 3 Months Immunizations Immunization Administration Dates Next Due Fluzone (or Fluarix & Flulav al for VFC) >6mos 11/22/2019,11/21/2018 Hep A / Hep B 11/21/2019,11/21/2018,10/22/2018 Hepatitis B 01/18/2007 Influenza, Unspecified 11/22/2019,11/21/2018 Tdap 10/22/2018 Family History Medical History Relation Name Comments Diabetes Father Ray Early Father Ray Relation Name Status Comments Father Ray Mother Alive Social History Tobacco Use Types Packs/Day Years [...] file Not on file Not on file Last Filed Vital Signs [...] Mass Index 25.58 12/13/2024 3:07 PM EST Plan of Treatment Health Maintenance Due Date Last Done Comments COLON CANCER SCREENING 5 YEAR SIGMOIDOSCOPY [address] COLONOGRAPHY 2015 FECAL OCCULT BLOOD TEST 2015 FIT Testing (1 year) 2015 ZOSTER VACCINE (1 of 2) 01/27/2020 Annual Gynecologic Pelvic and Breast Exam 05/21/2023 05/19/2022 PAP SMEAR 05/19/2025 05/19/2022 INFLUENZA VACCINE 06/11/2025 11/22/2019, , 11/21/2018, Additional history exists Postponed from 09/09/2024 (Patient Refused) Pneumococcal Vaccine 50+ (1 of 1 - PCV) 06/11/2025 Postponed from 01/27/2020 (Patient Refused) MAMMOGRAM 07/30/2025 07/31/2023, 05/13/2022 ANNUAL PHYSICAL 12/13/2025 12/13/2024 LIPID PANEL 12/14/2025 12/14/2024, 02/11, 05/05/2022, Additional history exists COLOGUARD 12/11/2027 12/10/2024, 10/11, 10/23/2020 COLORECTAL CANCER SCREENING 12/11/2027 TDAP/TD VACCINES (2 - Td or Tdap) 10/22/2028 10/22/2018 HEPATITIS C SCREENING Completed 05/05/2022 Procedures Procedure Name Priority Date/Time Associated Diagnosis Comments CBC AND DIFFERENTIAL Routine 12/14/2024 8:27 AM EST Elevated cholesterol COMPREHENSIVE METABOLIC PANEL Routine 12/14/2024 8:27 AM EST Elevated cholesterol LIPID PANEL Routine 12/14/2024 8:27 AM EST Elevated cholesterol COLOGUARD Routine 12/10/2024 9:30 AM EDT Screen for colon cancer SCANNED - MAMMO 07/31/2023 SCANNED - PAP SMEAR 05/19/2022 HEPATITIS C ANTIBODY Routine 05/05/2022 10:47 AM EDT Encounter for hepatitis C screening test for low risk patient from Last 3 Months or Most Recently Relevant to Health Maintenance Results * CBC & Differential (12/14/2024 8:27 AM EST) WBC 4.11 3.40 - 10.80 10*3/mm3 [facility] [...] - 12/15/2024 3:07 AM EST Performed at: [address] [place] [address] [id number] [employer]: Sukhwinder Figueroa MD, Phone: [phone] Patient Fasting: Y us Alessio Reza MD LAB BLOOD ORDERABLES Final Resu lt [facility] (AMBULATORY) [address] [place] [address], [place] [phone] [facility] [address] [place] [address], [place] [phone] * (ABNORMAL) Lipid Panel (12/14/2024 8:27 AM EST) Total Cholesterol 245(H) 0 - 200 mg/dL [...] LAB Blood 12/14/2024 8:27 AM EST 12/14/2024 Sunitha [facility] ([facility]) - 12/15/2024 3:07 AM EST Performed at: [address] [place] [address] [id number] [employer]: Sukhwinder Figueroa MD, Phone: [phone] Patient Fasting: Y us Alessio Reza MD LAB BLOOD ORDERABLES Final Resu lt [facility] ([facility]) [address] [place] [address], [facility] [address] [place] [address], * Comprehensive Metabolic Panel (12/14/2024 8:27 AM EST) [facility] Signature Glucose 81 65 - 99 mg/dL [facility] [...] - 12/15/2024 3:07 AM EST Performed at: [address] [place] [address] [id number] [employer]: Sukhwinder Figueroa MD, Phone: [phone] Patient Fasting: Y us Alessio Reza MD LAB BLOOD ORDERABLES Final Resu lt [facility] ([facility]) [address] [place] [address], [facility] [address] [place] [address], * Cologuard - Stool, Per Rectum (12/10/2024 9:30 AM EDT) Cologuard Negative Negative 12/17/2024 8:22 AM [facility] [employer] (CLIA #:[id number]) Comment: The Cologuard (TM) test was performed on this specimen. NEGATIVE TEST RESULT. A negative Cologuard result indicates a low likelihood that a colorectal cancer (CRC) or advanced adenoma (adenomatous polyps with more advanced pre-malignant features) is present. The chance that a person with a negative Cologuard test has a colorectal cancer is less than 1 in 1500 (negative predictive value >99.9%) or has an advanced adenoma is less than 5.3% (negative predictive value 94.7%). These data are based on a prospective cross-sectional study of 10,000 individuals at average risk for colorectal cancer who were screened with both Cologuard and colonoscopy. (Haley Capellan et al, N Engl J Med 2014;370(14):1286- 1297) The normal value (reference range) for this assay is negative. COLOGUARD RE-SCREENING RECOMMENDATION: Periodic colorectal cancer screening is an important part of preventive healthcare for asymptomatic individuals at average risk for colorectal cancer. Following a negative Cologuard result, the [place] [employer] and U.S. Multi-Society Task Force screening guidelines recommend a Cologuard re-screening interval of 3 years. References: [place] [employer] Guideline for Colorectal Cancer Screening: https://www.cancer.org/cancer/hqmbx-nbnpuj-xnktmg/pryaeghmn-sxquwthhg-syyqskw/ac s-rec ommendations.html.; Ector TIJERINA, Danny GARCIA, [place]rb[place] HUNTER, Colorectal Cancer Screening: Recommendations for Physicians and Patients from the U.S. Multi-Society Task Force on Colorectal Cancer Screening , Am J Gastroenterology 2017; 112:1949-0010. TEST DESCRIPTION: Composite algorithmic analysis of stool DNA-biomarkers with hemoglobin immunoassay. Quantitative values of individual biomarkers are not reportable and are not associated with individual biomarker result reference ranges. Cologuard is intended for colorectal cancer screening of adults of either sex, 45 years or older, who are at average-risk for colorectal cancer (CRC). Cologuard has been approved for use by the U.S. FDA. The performance of Cologuard was established in a cross sectional study of average-risk adults aged 50-84. Cologuard performance in patients ages 45 to 49 years was estimated by sub-group analysis of near-age groups. Colonoscopies performed for a positive result may find as the most clinically significant lesion: colorectal cancer [4.0%], advanced adenoma (including sessile serrated polyps greater than or equal to 1cm diameter) [20%] or non- advanced adenoma [31%]; or no colorectal neoplasia [45%]. These estimates are derived from a prospective cross-sectional screening study of 10,000 individuals at average risk for colorectal cancer who were screened with both Cologuard and colonoscopy. (Haley Arango al, N Engl J Med 2014;370(14):3889-8375.) Cologuard may produce a false negative or false positive result (no colorectal cancer or precancerous polyp present at colonoscopy follow up). A negative Cologuard test result does not guarantee the absence of CRC or advanced adenoma (pre-cancer). The current Cologuard screening interval is every 3 years. ([place] [employer] and U.S. Multi-Society Task Force). Cologuard performance data in a 10,000 patient pivotal study using colonoscopy as the reference method can be accessed at the following location: www.SimilarWeb/results. Additional description of the Cologuard test process, warnings and precautions can be found at www.[employer]yrd.com. Stool specimen (specimen) Specimen from rectum / Unknown 12/10/2024 9:30 AM EDT 12/13/2024 2:06 PM EST us Alessio Reza MD BODY FLUIDS AND STOOLS ORDERABL ES Final Result [employer] (CLIA #:[id number]) [address] [address], [place] [phone] * MAMMO Scan (07/31/2023) Anatomical Region Laterality Modality Other Alessio Reza MD CHART REVIEW TABS Final Resu lt * SCANNED - PAP SMEAR (05/19/2022) Nathaniel Trevizo MD CHART REVIEW TABS Final Re sult * Hepatitis C Antibody (05/05/2022 10:47 AM EDT) Hep C Virus Ab Non Reactive Non Reactive [facility] Comment: HCV antibody alone does not differentiate between previously resolved infection and active infection. Equivocal and Reactive HCV antibody results should be followed up with an HCV RNA test to support the diagnosis of active HCV infection. Blood 05/05/2022 10:4 7 AM EDT 05/05/2022 Narrative [facility] ([facility]) - 05/06/2022 12:10 PM EDT Performed at: 02 - [facility] [id number] [employer] Operator: Luis Dick PhD, Phone: [phone] Patient Fasting: Y Alessio Reza MD LAB BLOOD ORDERABLES Final Resu lt [facility] ([facility]) [address] [place] [address], [place] [phone] [facility] [address] [place] [address], [place] [phone] from Last 3 Months or Most Recently Relevant to Health Maintenance Insurance [facility] PPO Care Teams Gaggerman Relationship Specialty Start Date End Date Alessio Reza MD [address] [place] [address] PCP - General Family Medicine 09/28/20
== END 2025-01-02 23:59 | disposition home or self-care (01) ==
LOC: RAD 15:30
PROVIDERS: PCP Family Medicine; Visit Provider Family Medicine
DX: Z12.31 Encounter for screening mammogram for malignant neoplasm of breast (principal); R92.333 Mammographic heterogeneous density, bilateral breasts
CPT/HCPCS: 77063; 77067